=== PATIENT | male | born 1965 | race Caucasian/White ===

== ENCOUNTER 2024-09-25 02:41 | Observation (INO) | payer BC, SELFPAY ==
[2024-09-24] VITALS (7 sets, daily range): BP systolic 113–146; BP diastolic 63–85; PULSE 61–63; BMI 26.9
[2024-09-24] MEDS: NSS 1000 IV (21:10)
[2024-09-24] MEDS: ZOFRAN 4 MG IV (21:10)
[2024-09-24 21:52] LABS: Hematocrit 39.1 % (39.0-52.0); Mean Corp Hgb Conc. 33.2 g/dL (33.0-37.0); Mean Corpuscular Hgb 31.3 pg (27.0-31.0); Mean Platelet Volume 10.4 fL (7.4-10.4); Platelet Count 271 10^3/uL (130-400); Red Blood Cell Count 4.16 10^6/uL (4.70-6.10); Red Cell Dist. Width 13.1 % (11.5-14.5); White Blood Cell Count 9.6 10^3/uL (4.8-10.8)
[2024-09-24 22:09] LABS: ALT (SGPT) 31 U/L (0-50); AST (SGOT) 32 U/L (17-59); Albumin 4.3 g/dl (3.5-5.0); Alcohol 10 mg/dl; Alkaline Phosphatase 43 U/L (38-126); Blood Urea Nitrogen 14 mg/dl (9-20); Calcium 9.4 mg/dl (8.4-10.2); Carbon Dioxide 26 mmol/L (22-30); Chloride 105 mmol/L (98-107); Estimated Creatinine Clearance 84 ml/min; Glucose 90 mg/dl (70-99); Potassium 3.5 mmol/L (3.5-5.1); Sodium 140 mmol/L (135-145); Total Bilirubin 0.7 mg/dl (0.2-1.3); Total Protein 6.9 g/dl (6.3-8.2); eGFR > 60.00
[2024-09-24 22:38] LABS: TSH 2.81 uIU/ml (0.47-4.68)
[2024-09-25] VITALS (9 sets, daily range): BP systolic 109–134; BP diastolic 51–98; PULSE 47–61; BMI 26.4
--- NOTE | 2024-09-25 00:03 | ED.GENMED ---
History of Present Illness
General
Chief Complaint: Fainting/Passed Out
Source: patient and spouse
Exam Limitations: none
Time Seen by Provider: 09/24/24 20:57
Nursing documentation reviewed up to this point in time: agreed with
History of Present Illness
History of Present Illness:
Patient presents to ED for an evaluation after witnessed syncopal episode, while having dinner with his friend this afternoon. Patient reports feeling lightheaded when the incident occurred. Patient denies chest pain, palpitations, shortness of
breath, nausea, or vomiting. Denies previous history of similar symptoms. Denies recent travel or surgery. Patient states that for the past 2 months, he has lost approximately 20 pounds of weight intentionally, for health reasons. Today, patient
reports having only half of oatmeal, prior to this evening, when he had a glass of beer, followed by 2 slice of pizza. Denies family history of heart disease or blood clots. Denies recent illness.
Review of Systems
Review of Systems
Allergies reviewed?: Yes
All Other Systems: ROS reviewed and negative except as documented in HPI and ROS
Constitutional: Reports no symptoms
EENT: Reports no symptoms
Respiratory: Reports no symptoms; Denies trouble breathing
Cardiac: Reports syncope; Denies chest pain or palpitations
ABD/GI: Reports nausea; Denies vomiting
: Reports no symptoms
Musculoskeletal: Reports no symptoms
Skin: Reports no symptoms
Neurological: Reports dizzy; Denies headache
Phy Exam
Physical Exam
Physical Exam:
Physical Exam
General: no apparent distress, not acutely ill. afebrile
Head: nc/at. eomi
Neck: supple. no meningeal signs.
Heart: s1/s2 regular rate and rhythm, no murmur.
Lungs: no acute respiratory distress. clear bilaterally
Abdomen: normal bowel sounds. not tender.
Neuro: alert and oriented x 3. no focal neurological deficits
Skin: no rash
Psychiatric: well kept. interactive and cooperative
Extremities: no edema. no calf tenderness.
Course
Orders/Labs/Results
Orders:
Orders
09/24/24 20:43
Electrocardiogram (*1) Urgent
Reason for Study: Syncope
EKG- Treatment ONCE
09/24/24 20:57
0.9% Sodium Chloride 1000 ml [Nss] 1,000 ml IV BOLUS
Ondansetron Injectable [Zofran] 4 mg IV NOW STA
09/24/24 20:58
Ondansetron Injectable [Zofran] 4 mg .ROUTE .STK-MED ONE
09/24/24 21:45
Alcohol Urgent
Complete Blood Count/No Diff Urgent
Comprehensive Metabolic Panel Urgent
Magnesium Urgent
TSH Urgent
09/24/24 22:11
Troponin I Urgent
09/25/24 00:34
Admit/Transfer Patient As Directed
Co-Sign Provider:
Level of Care: Observation services
Assign to:: IVU
Physician / Group: hospitalist
Diagnosis: syncope, bradycardia
PRN Pain Medication Management As Directed
May give lesser potent ordered pain med per pt: Yes
preference::
Protocol:: Medication orders for pain may be administered in a
manner that supports deferring to patient preference
when the pt is:
- Requesting an ordered lesser potent pain medication.
Least to most potent pain medications are defined
as: acetaminophen < NSAID < tramadol < opioids
(morphine, oxycodone, hydromorphone).
- Requesting a lesser dose of the same medication IF
ORDERED.
- Requesting a less intrusive route of administration
if both routes are prescribed by the provider (PO <
IV).
09/25/24 00:35
Code Status As Directed
Resuscitation Status: Full Code
09/25/24 02:54
Electrocardiogram (*1) Q6H
Reason for Study: Chest Pain
Comment: at admission and Q3H for total of 3, to be done with each troponin
Atropine Sulfate [Atropine 0.1 mg/ml Syringe] 1 mg IV ONCE PRN
Ondansetron Injectable [Zofran] 4 mg IV Q6HPRN PRN
09/25/24 02:54
Echo 2D MMode Color/Doppler Routine
Reason for Study: chest pain
CARDIOLOGY CONSULT Routine
Consulting Provider: Jorge Méndez
Was physician already notified: No
Reason for consult: sinus bradycardia, syncope
Consult Notification Routine
Specialty to Notify: Cardiology
Date consulting provider notified: 09/25/24
Time consulting provider notified: 07:18
Notified:: Provider
Comment: Dr. Merida notified via tiger text
Activity As Directed
Activity Level: As Tolerated
INT (Intravenous Needle Therapy) As Directed
Comment: maintain peripheral IV access
Intake/ Output As Directed
Frequency: Per unit guidelines
Orthostatic Vital Signs As Directed
Orthostatic VS Frequency: Daily
Vital Signs As Directed
Frequency: q4h
Weight As Directed
Frequency: Once
Pulse Ox/spot Check [RESP] Routine
Quantity: 1
Special Instructions: on admission and then every shift if on oxygen
DX Deep Vein Thrombosis Video Routine
09/25/24 03:00
Flush (0.9% Sodium Chloride) [Flush (Nss)] See Dose Instructions IV PER PROTOCOL
09/25/24 03:31
Basic Metabolic Panel IN AM
Cardiovascular Evaluation IN AM
Glycohemoglobin (HgbA1c) IN AM
Troponin I Q3H
Comment: at admit & Q3H for 3 total including ED draws, obtain ECG with each level
09/25/24 Breakfast
Cholesterol Lowering
At Your Request: Full Participation
Does patient need a safe tray?: No
Cholesterol Lowering: Sodium, 2 Gram
09/25/24 06:31
Troponin I Q3H
Comment: at admit & Q3H for 3 total including ED draws, obtain ECG with each level
09/25/24 08:54
Electrocardiogram (*1) Q6H
Reason for Study: Chest Pain
Comment: at admission and Q3H for total of 3, to be done with each troponin
09/25/24 18:00
Enoxaparin Sodium [Lovenox] 40 mg SC QPM
Rosuvastatin Calcium [Crestor] 10 mg PO QPM
Abnormal Lab Results
09/24/24
21:45
RBC 4.16 L 10^6/uL
(4.70-6.10)
MCH 31.3 H pg
(27.0-31.0)
09/24/24 21:45
09/24/24 21:45
Vital Signs
Initial and Last Documented VS:
Initial Vital Signs
Pulse BP
42 120/63
09/24/24 20:50 09/24/24 20:50
Last Documented Vital Signs
Temp Pulse Resp BP Pulse Ox
97.6 F 58 18 115/70 99
09/25/24 11:07 09/25/24 11:07 09/25/24 11:07 09/25/24 11:07 09/25/24 11:07
MDM/Problems Addressed
MDM/Problems Addressed:
History and exam consistent with syncope. Etiology for syncope will include bradycardia, vagal response versus arrhythmia. As such, patient will be admitted for further evaluation and treatment.
*EKG
Interpreted by ED Provider?: Yes
EKG Intrepretation Date: 09/24/24
Heart Rate: 44
Rate: bradycardiac
Rhythm: sinus
Davis: normal axis
Interval: normal interval
*Critical Care Note
Total Time (30-74mins, 75-104mins- exclusive of procedures): Not Applicable
ED Attending Note
-
Portions of this chart may have been created with voice recognition software.� Occasional wrong word or��sound alike� substitutions may have occurred due to the inherent limitations of voice recognition software.
Discharge Plan
Departure
Patient Disposition: Admit
Date of Disposition: 09/25/24
Time of Disposition: 00:11
Presentation/result/management discussed w/ accepting MD/DO: Hospitalist
Discharge Problem:
Syncope
Interventions
Interventions:
*Risk Screen - Suicide Last Done: 09/24/24 20:57
*General Assessment Last Done: 09/24/24 20:57
*Neglect/Abuse Screening Last Done: 09/24/24 20:57
*ED- Fall Risk Assessment Last Done: 09/24/24 20:57
*ED COVID-19 Vaccine History Last Done: 09/25/24 03:04
*Nursing Disposition Last Done: 09/25/24 03:06
ED- Cardiac Assessment Last Done: 09/24/24 21:33
ED- Neurological Assessment Last Done: 09/24/24 21:33
Discharge Date and Time
Discharge Date/Time: 09/25/24 03:07
--- NOTE | 2024-09-25 00:24 | HPS.HSE ---
Family Physician
-
Family Physician: Rosalio Zhao
Chief Complaint
-
Syncope
History of Present Illness
This is a 59-year-old past medical history of Crohn's disease in remission, hypertension and hyperlipidemia who presents to the emergency department after a syncopal episode and was found to be bradycardic.
Patient reported being in usual state of health up until dinnertime this evening. He was sitting down for dinner when all of a sudden he felt nausea but did not vomit. Before he realized that he felt lightheaded and felt that his vision was
getting hazy and family reported that he passed out for few seconds. Prior to passing out patient reported having right-sided chest discomfort which she says is localized to the right shoulder. When he came to he then vomited and his chest
discomfort was relieved. Was brought to the emergency department. When EMS got to him he was bradycardic to the 40s. He reported that he no longer had any discomfort. In the emergency department he had another episode of nausea and felt some
chest discomfort which also resolved after vomiting. He did have a decreased p.o. intake is relatively today missing breakfast and having only very small lunch.
Patient denies any history of syncope. Reported that he been evaluated for enlarged heart in the past and had repeated ECGs. He has no recent echo or stress test. Is not on any beta-blockade or calcium channel anai. His only medications are
losartan and rosuvastatin. He denies any supplements. He denies any recent travel. Patient denies any known tick bite. He does report a rash in the right lower back which he states has been there for several years and routinely flares up.
In the emergency department he was bradycardic to the low 40s. Blood pressure was 121/78, pulse when I saw him ranged from 45-70. ECG showed sinus bradycardia at a rate of 44. This was similar to an ECG done in 2019 which showed sinus bradycardia
to 41. There was no evidence of heart block, QTc was normal. Troponin is pending. TSH is normal. CBC was normal. Electrolytes BUN and creatinine were all normal.
Medical History
Past Medical History
Past Medical History: Reports HTN, Hypercholesterolemia and Other (Crohn's disease)
Past Surgical History: Reports Bowel Resection
Social History
Tobacco: Non-smoker
Alcohol: None
Drug: None
Personal:
Living: With Family
Employment: Employed
Family History
Family History: Cancer
Allergies / Home Medications
Allergies reflects when Allergies were last updated in [employer].
Home Medications with original date entered in [employer]
Allergy/Medication List:
Allergies
Allergy/AdvReac Type Severity Reaction Status Date / Time
infliximab [From Remicade] AdvReac Intermediate Rash Verified 03/16/19 15:52
acetaminophen [From NyQuil] AdvReac Mild Nausea / Verified 03/16/19 15:52
Vomiting
dextromethorphan AdvReac Mild Nausea / Verified 03/16/19 15:52
[From NyQuil] Vomiting
doxylamine [From NyQuil] AdvReac Mild Nausea / Verified 03/16/19 15:52
Vomiting
pseudoephedrine [From NyQuil] AdvReac Mild Nausea / Verified 03/16/19 15:52
Vomiting
Losartan 25 mg tablet, 25 mg p.o. daily
Rosuvastatin 10 mg tablet, 10 mg p.o. at bedtime
Review of Systems
-
Constitutional: Reports No Symptoms
EENT: Reports No Symptoms
Respiratory: Reports No Symptoms
Cardiac: Reports Syncope
Abdomen/GI: Reports No Symptoms
: Reports No Symptoms
Musculoskeletal: Reports No Symptoms
Skin: Reports No Symptoms
Neurological: Reports No Symptoms
Endocrine: Reports No Symptoms
Hematologic/Lymphatic: Reports No Symptoms
Psych: Reports No Symptoms
Physical Exam
Vital Signs
Vital Signs
Temp Pulse Resp BP Pulse Ox
97.6 F 52 18 121/78 97
09/24/24 20:57 09/24/24 21:30 09/24/24 21:30 09/24/24 21:00 09/24/24 21:30
Physical Exam
General: Well Developed, Well Nourished, No Apparent Distress and Comfortable
HEENT: NormoCephalic, Anicteric, Moist mucous membranes and Atraumatic
Respiratory: Clear
Cardiac: S1/S2, Regular Rhythm and Bradycardia
GI: Soft, Non Tender, Non Distended and Normal Bowel Sounds
Rectal: Deferred by Provider
Genito-urinary: Clear Urine
Musculoskeletal: No Clubbing, No Cyanosis and No Edema
Skin: Warm
Neuro: AO x 3 and Nonfocal/grossly intact
Hematologic/Lymphatic: No Lymphadenopathy
Psych: Calm
Laboratory Results
-
09/24/24 21:45
09/24/24 21:45
Laboratory Results
Total Bilirubin 0.7 mg/dl (0.2-1.3) 09/24/24 21:45
AST 32 U/L (17-59) 09/24/24 21:45
ALT 31 U/L (0-50) 09/24/24 21:45
Alkaline Phosphatase 43 U/L (38-126) 09/24/24 21:45
Data Reviewed
-
Medical Tests (Nuc Med, Echo, EKG etc): Image Personally Visualized and interpreted
Lab Data: Labs Reviewed by me
Old Records: Reviewed
Impression/Plan
-
IMPRESSION:
59-year-old with history of hypertension who presents to the emergency department with syncopal episode associated with bradycardia. Bradycardic to the low 30s in the ED. There seems to be some association with nausea and right-sided chest
discomfort with bradycardia. ECG was nonischemic but troponin is pending at this time. Patient's ECG showed bradycardia in 2019. He however denies any history of palpitations lightheadedness dizziness or syncope. Suspect the possibility of
vasovagal causing worsening of his underlying bradycardia resulting in syncope. Alternatively the patient might have had sinus arrhythmia versus ventricular arrhythmia resulting in the syncope. Cannot rule out symptomatic bradycardia. He does not
have any evidence of heart block.
PLAN:
1. Syncope -patient with underlying sinus bradycardia since 2017 on ECG. No known cardiac disease. No episodes of chest pain, dyspnea on exertion or exertional chest pain. Currently bradycardic to as low as 33 with a range of mostly 40s to 70
while sitting at rest. He is not on any genesis blocking agents.
- admit to IVU
- monitor on telemetry x 24 hours and consider holter if negative
- tsh wnl,
- trend troponins
- Echo in am
- consider outpatient stress test.
- no evidence to suggest spirochete or parasite causing heart block
- prn atropine if symptomatic bradycardia
- orthostatic vs
- cardiology consult.
DVT PPX - lovenox sq
Full Code
[2024-09-25 00:59] LABS: Troponin I < 0.012 ng/ml
[2024-09-25 04:11] LABS: Blood Urea Nitrogen 16 mg/dl (9-20); Calcium 9.2 mg/dl (8.4-10.2); Carbon Dioxide 28 mmol/L (22-30); Chloride 107 mmol/L (98-107); Estimated Creatinine Clearance 94 ml/min; Glucose 122 mg/dl (70-99); HDL Cholesterol 54 mg/dl; LDL Cholesterol, Calculated 46 mg/dl; Sodium 142 mmol/L (135-145); Total Cholesterol 111 mg/dl (50-199); Triglyceride 57 mg/dl (10-149); Very Low Density Lipoprotein 11 mg/dl (0-30); eGFR > 60.00
[2024-09-25 04:22] LABS: Troponin I < 0.012 ng/ml
--- NOTE | 2024-09-25 05:47 | PTCARENOTE ---
pt admitted to room 2250 with bradycardia. Pt denies any pain or discomfort at this time. HR 40-60 BPM. Pt oriented to the room. call [facility] in reach
[2024-09-25 07:03] LABS: Troponin I < 0.012 ng/ml
--- NOTE | 2024-09-25 08:00 | PTCARENOTE ---
Assumed care at 0700. VSS. Sinus minal w/ sinus arrhythmia on tele, HR 40-50s. Denies feelings of symptomatic bradycardia. Updated on plan.
--- NOTE | 2024-09-25 08:17 | CON.CAR ---
Addendum entered and electronically signed by Raad Merida DO 09/25/24 09:49:
I saw and examined the patient.
The Circular Clerk's note was reviewed and I agree with the note.
Comment:
Plan:
-Patient presents due to syncopal episode with associated R shoulder discomfort relieved with vomiting.
Syncope appears vasovagal from vomiting and volume contraction. He had not eaten or drank much aside from coffee and tea.
Prior hx of bradycardia and EKG unchanged from previous. No evidence of high grade block or pauses on tele. HR stabe in 60s.
-Troponins serially negative
-Blood pressures have been stable
Lipids at goal on statin therapy.
Will arrange for outpatient cardiac follow-up and can consider echocardiogram, outpatient stress testing with stress echo. May consider outpt monitor for recurrent syncope.
Discussed if he continues to lose weight, may need reduction in outpatient blood pressure medication. He will follow blood pressure trends at home at d/w PCP
Discussed adequate PO intake and nutrition while he continues his wt loss goals daniel with his of UC and colon resection.
Will arrange outpt cardiac follow up
Please recall if needed.
Original Note:
Consultation
Consultation Request
Date/Time Consultation Performed: 09/25/24
Requesting Provider: Dr. Granados
Performing Provider: India Sarmiento PA-C for Dr. Merida
Reason for Consultation: syncope, bradycardia
Medical History
-
Chief Complaint: syncope
History of Present Illness:
Patient is a 59-year-old male with past medical history of ulcerative colitis, colon resection in 2015, hypertension, hyperlipidemia who presented to [facility] due to syncopal episode. He reports over the last 2 months he has been
intentionally trying to lose weight, and has lost approximately 15 pounds. He states yesterday he did not eat much, and did not drink any water. He then went to dinner with friends and had 1 beer and 2 slices of pizza. He states while sitting at
the table he began to feel dizzy/lightheaded and put his head down on the table. He states he passed out for approximately 10 seconds. He reports he got up to go to the bathroom and felt clammy. He states he had some right shoulder discomfort and
right abdominal 'uneasiness' which was relieved with episode of vomiting. EMS was called and patient was brought to the emergency room. He does have history of syncope in the past in the setting of vomiting. On arrival to ER patient was noted to
be bradycardic with heart rates in the 40s. Cardiology consulted for evaluation. Denies significant cardiac history. Denies clotting issues, calf pain.
PMH:
HTN
HLD
UC
Colon resection in 2014
Past Medical History
Past Medical History: Other (in HPI)
Social History
Tobacco: Non-Smoker
Alcohol: Occasional
Personal:
Living: With Family
Employment: Retired
Family History
Family History: Hypertension (in mother)
Allergies / Home Medications
Allergy/AdvReac Type Severity Reaction Status Date / Time
infliximab [From Remicade] AdvReac Intermediate Rash Verified 03/16/19 15:52
acetaminophen [From NyQuil] AdvReac Mild Nausea / Verified 03/16/19 15:52
Vomiting
dextromethorphan AdvReac Mild Nausea / Verified 03/16/19 15:52
[From NyQuil] Vomiting
doxylamine [From NyQuil] AdvReac Mild Nausea / Verified 03/16/19 15:52
Vomiting
pseudoephedrine [From NyQuil] AdvReac Mild Nausea / Verified 03/16/19 15:52
Vomiting
Review of Systems
-
History Source: Patient
All other systems: Negative unless noted
Physical Exam
Vital Signs
Temp Pulse Resp BP Pulse Ox
97.8 F 57 16 109/51 99
09/25/24 07:11 09/25/24 08:00 09/25/24 07:11 09/25/24 07:12 09/25/24 07:11
Lab Results
09/24/24 21:45
09/25/24 03:31
Troponin I < 0.012 ng/ml 09/25/24 06:31
Physical Exam
General: No Apparent Distress and Comfortable
HEENT: Normocephalic, Anicteric and Moist Mucous Membranes
Respiratory: Clear and Non Labored Respirations
Cardiac: S1/S2 and Regular Rhythm
GI: Soft, Non Tender, Non Distended and Normal Bowel Sounds
Musculoskeletal: No Clubbing, No Cyanosis and No Edema
Skin: Warm and Dry
Neuro: AO x 3
Impression / Plan
-
Primary Journalist: none prior to admission
Assessment:
Presentation with syncope
R chest discomfort
Vomiting
Serially negative troponins
HTN
HLD
UC
Colon resection in 2014
History of syncope in setting of vomiting
Plan:
-Patient presents due to syncopal episode with associated R shoulder discomfort relieved with vomiting.
-Troponins serially negative
-EKGs sinus bradycardia without acute ischemic changes. On comparison from prior EKG from 2019, patient was also bradycardic at that time. He does not have any evidence on review of telemetry of pauses or high-grade AV block. Heart rates are
currently in the 60s to 70s.
-Blood pressures have been stable
-Suspect vasovagal etiology of syncope
-Would arrange for outpatient cardiac follow-up and can consider echocardiogram, outpatient stress testing, and possibly cardiac monitoring
-We discussed if he continues to lose weight, may need reduction in outpatient blood pressure medication. Would follow blood pressure trends at home
-Encouraged adequate hydration and nutrition
-Will ambulate patient after breakfast to ensure no recurrence of symptoms
-d/w nursing
Data Reviewed
-
EKG: Tracing Personally Visualized and interpreted
Labs: Labs Reviewed by me
Old Records: Reviewed
[2024-09-25 09:48] LABS: Glycohemoglobin (HgbA1c) 5.2 % (4.0-5.6)
--- NOTE | 2024-09-25 10:27 | W.PN.HOSP.TC ---
Today's Communication/Plan
-
Discharge home today
Assessment / Plan
Assessment / Plan
Assessment/plan
1. Syncope -patient with underlying sinus bradycardia since 2017 on ECG. No known cardiac disease. No episodes of chest pain, dyspnea on exertion or exertional chest pain. Currently bradycardic to as low as 33 with a range of mostly 40s to 70
while sitting at rest. He is not on any genesis blocking agents.
- admit to IVU
- monitor on telemetry x 24 hours and consider holter if negative
- tsh wnl,
- trend troponins
- Echo in am
- consider outpatient stress test.
- no evidence to suggest spirochete or parasite causing heart block
- prn atropine if symptomatic bradycardia
- orthostatic vs
- cardiology consulted
09/25
Seen by cardiology and plan to discharge and follow-up as outpatient.
Blood pressure is soft, advised to hold losartan in Dc.
CODE STATUS: Full code
DVT prophylaxis: Lovenox
Diet: Regular diet
I spent 65 minutes giving direct care to the patient including chart review, talking to consultants, talking to treatment team, family communication.
Anticipated Discharge: Today
Subjective/Interval History
-
Date of Service: September 25, 2024
Patient seen and examined at bedside, denies any chest pain or shortness of breath, no abdominal pain, no nausea, no vomiting, no diarrhea or constipation.
Seen by cardiology and plan to discharge and follow-up as outpatient.
Blood pressure is soft, advised to hold losartan in Dc.
Objective Data
-
Labs:
Laboratory Results
09/25/24
03:31
Sodium 142
Potassium 4.0
Chloride 107
Carbon Dioxide 28
BUN 16
Creatinine 0.9
Glucose 122 H
Calcium 9.2
Vital Signs:
Vital Signs
Temp Pulse Resp BP Pulse Ox
97.8 F 57 16 109/51 99
09/25/24 07:11 09/25/24 08:00 09/25/24 07:11 09/25/24 07:12 09/25/24 07:11
I&O
09/24/24 09/25/24 09/26/24
06:59 06:59 06:59
Output Total 600 / 600
Balance -600 / -600
Physical Exam
-
General: Well Developed, Well Nourished, No Apparent Distress and Comfortable
HEENT: Normocephalic, Atraumatic, Moist Mucous Membranes, No Ptosis, PERRLA and Nose Appears Normal
Respiratory: Clear to Auscultation and Non Labored Respirations
Cardiac: Regular Rhythm and S1/S2
Breast: Deferred by me
GI: Soft, Nontender, Nondistended and Normal Bowel Sounds
Genito-urinary: No Costovertebral Tender
Musculoskeletal: No Clubbing, No Cyanosis and No Edema
Skin: Warm
Neuro: Awake, Alert, Oriented, AO x 3 and No Motor Deficits
Psych: Calm
Data Reviewed
-
Diagnostic Radiology: Image personally visualized and interpreted and Report Reviewed by me
CT Scan: Image personally visualized and interpreted and Report Reviewed by me
Ultrasound: Image personally visualized and interpreted and Report Reviewed by me
MRI: Image personally visualized and interpreted and Report Reviewed by me
Medical Tests (Nuc Med, Echo etc): Image personally visualized and interpreted and Report Reviewed by me
Labs: Labs Reviewed by me
Old Records: Reviewed
--- NOTE | 2024-09-25 10:27 | W.DCSUMMARY ---
Discharge Summary
Discharge Data
Date of Admission: 09/25/24
Date of Discharge: 09/25/24
Total time spent discharging patient (in min): 40
-
Pending Results: No
Additional Pending Results:
1. Syncope -patient with underlying sinus bradycardia since 2017 on ECG. No known cardiac disease. No episodes of chest pain, dyspnea on exertion or exertional chest pain. Currently bradycardic to as low as 33 with a range of mostly 40s to 70
while sitting at rest. He is not on any genesis blocking agents.
- admit to IVU
- monitor on telemetry x 24 hours and consider holter if negative
- tsh wnl,
- trend troponins
- Echo in am
- consider outpatient stress test.
- no evidence to suggest spirochete or parasite causing heart block
- prn atropine if symptomatic bradycardia
- orthostatic vs
- cardiology consulted
09/25
Seen by cardiology and plan to discharge and follow-up as outpatient.
Blood pressure is soft, advised to hold losartan in Dc.
CODE STATUS: Full code
DVT prophylaxis: Lovenox
Diet: Regular diet
Discharge Plan
-
Patient Disposition: Home (Routine Discharge)
Discharge Diagnosis/Procedures: syncope
Condition: Good
Diet: No restrictions
Activity: No restrictions and As tolerated
Driving Restrictions: As prior to admission
Bathing Restrictions: OK to Shower
Instructions: Checking your blood pressure at home
Referrals:
Jorge Méndez MD [Active] - in one week
Rosalio Zhao MD [Family Provider] -
Kacy Palma PA-C [Specified Professional Personl] - 10/07/24 7:40 am (You have a cardiology follow-up appointment at the [place] office. Please call with questions)
Prescriptions:
Continued
rosuvastatin [Crestor] 10 mg Tablet
10 mg PO DAILY
Held
losartan 25 mg Tablet
25 mg PO DAILY
Hold Instructions: Resume on 10/26/24. Hold untill seen by cardiology and PCP
Discharge Orders:
Discharge Patient (As Directed); Ordered 09/25/24
Ordered By: Susana De La Paz
Discharge Date and Time
Discharge Date/Time: 09/25/24 12:21
Print Language: ALB[place]
--- NOTE | 2024-09-25 12:27 | PTCARENOTE ---
Patient belongings(jeans and belt) found by housekeeping after patient left. Called patient w/ number on file, voicemail left w/ call back number. Belongings left at community development planner desk.
== END 2024-09-25 12:21 | disposition home or self-care (01) ==
LOC: IVU 02:41
PROVIDERS: ADMITTING PHYSICIAN Internal Medicine; ATTENDING PHYSICIAN General Practice; EMERGENCY PHYSICIAN Emergency Medicine; FAMILY PHYSICIAN Internal Medicine; OTHER PHYSICIAN Nuclear Medicine Nuclear Cardiology
DX: R55 Syncope and collapse (principal); R42 Dizziness and giddiness; R00.1 Bradycardia, unspecified; I10 Essential (primary) hypertension; K51.90 Ulcerative colitis, unspecified, without complications; E78.00 Pure hypercholesterolemia, unspecified; I49.3 Ventricular premature depolarization; R11.2 Nausea with vomiting, unspecified; R07.89 Other chest pain; R21 Rash and other nonspecific skin eruption; Z88.6 Allergy status to analgesic agent; Z88.8 Allergy status to other drugs, medicaments and biological substances; Z90.49 Acquired absence of other specified parts of digestive tract; Z82.49 Family history of ischemic heart disease and other diseases of the circulatory system
CPT/HCPCS: 80048; 80053; 80061; 82077; 83036; 83735; 84443; 84484; 85027; 93005; 96361; 96374; 99284; G0378

== ENCOUNTER → 2024-10-26 08:03 | Outpatient (REF) | payer OTHER, SELFPAY | LOC: HWRCS 08:03 | PROVIDERS: ATTENDING PHYSICIAN Physician Assistant; FAMILY PHYSICIAN Internal Medicine | DX: Z87.898 Personal history of other specified conditions (principal); I10 Essential (primary) hypertension | CPT/HCPCS: 93017; 93306 ==